=== PATIENT | female | born 1965 | race African-American/Black ===

== ENCOUNTER 2017-09-22 11:41 | Emergency (ER) | payer MEDICARE ==
[~2017-09-22] VITALS: Ht 157.5 cm; Wt 84.8 kg
[2017-09-22 11:45] VITALS: BP 156/93
[2017-09-22] MEDS ORDERED: DIAZEPAM5 MG ORAL (11:52)
[2017-09-22] MEDS ORDERED: AMOXICILLIN500 MG ORAL (11:52)
[2017-09-22] MEDS ORDERED: ATENOLOL25 MG ORAL (11:52)
[2017-09-22] MEDS ORDERED: LORazepam Inj 2mg/ml 1ml IV ONE (12:30)
[2017-09-22 12:39] VITALS: BP 147/78
[2017-09-22] MEDS ORDERED: LORazepam 1mg tab ORAL ONE (12:45)
[2017-09-22 13:01] LABS: BASOPHILS % (AUTO) 1.5 % (0.0-2.0); EOSINOPHILS % (AUTO) 0.5 % (0.0-3.0); HEMATOCRIT 48.2 % (37.0-47.0); HEMOGLOBIN 15.3 G/DL (12.0-16.0); LYMPHOCYTES % (AUTO) 33.7 % (20.0-45.0); MEAN CORPUSCULAR VOLUME 83 FL (80-99); MONOCYTES % (AUTO) 7.2 % (1.0-10.0); PLATELET COUNT 289 K/UL (150-450); RED BLOOD COUNT 5.83 M/UL (4.20-5.40); RED CELL DISTRIBUTION WIDTH 13.5 % (11.6-14.8); WHITE BLOOD COUNT 6.8 K/UL (4.8-10.8)
[2017-09-22 13:17] LABS: ANION GAP 9 mmol/L (5-15); BLOOD UREA NITROGEN 11 mg/dL (7-18); CALCIUM 9.2 MG/DL (8.5-10.1); CARBON DIOXIDE 29 MMOL/L (21-32); CHLORIDE 105 MMOL/L (98-107); CREATININE 0.7 MG/DL (0.55-1.30); POTASSIUM 3.3 MMOL/L (3.5-5.1); SODIUM 143 MMOL/L (136-145)
[2017-09-22 13:30] LABS: ALANINE AMINOTRANSFERASE 40 U/L (12-78); ALBUMIN 4.1 G/DL (3.4-5.0); ALBUMIN/GLOBULIN RATIO 1.1 (1.0-2.7); ALKALINE PHOSPHATASE 116 U/L (46-116); ASPARTATE AMINO TRANSFERASE 21 U/L (15-37); BILIRUBIN,TOTAL 0.3 MG/DL (0.2-1.0); CREATINE KINASE 173 U/L (26-308)
[2017-09-22 14:09] VITALS: BP 140/81
[2017-09-22] MEDS ORDERED: KCl 10% 20 mEq/15ml liquid ORAL STA (14:18)
--- NOTE | 2017-09-22 14:20 | Emergency Room Report ---
History of Present Illness General Chief Complaint: Dizziness Source: Patient Present Illness HPI Patient presents with multiple complaints. She feels dizzy. She was recently treated with amoxicillin for right otitis media. In addition to that she's been feeling nauseated. She feels pulsing her neck and palpitations. She suffers from anxiety and takes diazepam and also Xanax. She has not had any fevers. She denies loss of consciousness. There is no chest pain, rather she feels palpitations at times. She's going through menopause at this time. Her doctor has not discussed hormone replacement. The last few days she's also been urinating frequently. She has no known history of diabetes at this time. No headache, cough, nausea, vomiting. No change in bowels. She takes atenolol for HTN. She is not on any diuretic. She is worried about her thyroid with the pulsing in her neck. Also, with the dizziness, she is worried about something wrong in her brain. Allergies: Coded Allergies: No Known Allergies (Unverified , 09/22/17) Patient History Past Medical History: see triage record Social History: Reports: smoking - former Social History Narrative at home Last Menstrual Period: menopause Reviewed Nursing Documentation: PMH: Agreed, PSxH: Agreed Nursing Documentation-PMH Past Medical History: No History, Except For Hx Cardiac Problems: Yes - palpitation Hx Hypertension: Yes Hx Pacemaker: No Hx Asthma: No Hx COPD: No Hx Diabetes: No Hx Cancer: No Hx Gastrointestinal Problems: No Hx Dialysis: No History Of Psychiatric Problem: No Hx Neurological Problems: No Hx Cerebrovascular Accident: No Hx Seizures: No Review of Systems All Other Systems: negative except mentioned in HPI Physical Exam Vital Signs Date Time Temp Pulse Resp B/P (MAP) Pulse Ox O2 Delivery O2 Flow Rate FiO2 09/22/17 11:45 98.2 87 16 156/93 95 Room Air Sp02 EP Interpretation: reviewed, normal General Appearance: well appearing, no apparent distress, GCS 15 Head: normocephalic Eyes: bilateral eye normal inspection, bilateral eye PERRL, bilateral eye other - periorbital hyperpigmentation ENT: normal pharynx, moist mucus membranes, other - R canal with some thickening, TM normal Neck: full range of motion, supple, thyroid normal Respiratory: lungs clear, normal breath sounds Cardiovascular #1: regular rate, rhythm Cardiovascular #2: 2+ radial (R) Gastrointestinal: normal inspection, normal bowel sounds, non tender, no mass, non-distended, overweight Musculoskeletal: back normal, gait/station normal, normal range of motion Neurologic: alert, oriented x3, behavioral medical director III-XII nml as tested, motor strength/tone normal, DTRs symmetric, sensory intact, cerebellar normal, normal gait, speech normal Psychiatric: anxious Skin: normal inspection, warm/dry Medical Decision Making Diagnostic Impression: Primary Impression: Dizziness Additional Impressions: Suspected change of life symptoms Hypokalemia ER Course Patient with polyuria, dizziness, palpitations and strange feeling in her neck. Ddx: vertigo, hyperthyroidism, diabetes, arrhythmia, electrolyte abnormalities , anxiety, perimenopausal symptoms, labyrinthitis amongst others. Evaluation with EKG, cardiac monitoring, labs. Non-focal neurologic exam and imaging studies not indicated. She requests ativan before IV start. EKG no injury. Labs with normal WBC and slight elevated h/h. K is minimally low. TSH normal. Glucose 114. Improved with treatment. However, patient is requesting MRI of brain. I discussed that based on exam, not indicated at this time. Discussed lab findings and considerations for PMD to further evaluate. K given. Etiology of low K unclear. Given copies of labs and EKG. When discussing plan, she states Antivert has not helped her in the past. No medical emergency at this time. Patient stable for outpatient observation and treatment. Laboratory Tests Test 09/22/17 12:05 09/22/17 12:53 Urine Color Pale yellow Urine Appearance Clear Urine pH 7 (4.5-8.0) Urine Specific [place] 1.010 (1.005-1.035) Urine Protein Negative (NEGATIVE) Urine Glucose (UA) Negative (NEGATIVE) Urine Ketones Negative (NEGATIVE) Urine Occult Blood Negative (NEGATIVE) Urine Nitrite Negative (NEGATIVE) Urine Bilirubin Negative (NEGATIVE) Urine Urobilinogen Normal MG/DL (0.0-1.0) Urine Leukocyte Esterase Negative (NEGATIVE) Urine Opiates Screen Negative (NEGATIVE) Urine Barbiturates Screen Negative (NEGATIVE) Phencyclidine (PCP) Screen Negative (NEGATIVE) Urine Amphetamines Screen Negative (NEGATIVE) Urine Benzodiazepines Screen Positive (NEGATIVE) H Urine Cocaine Screen Negative (NEGATIVE) Urine Marijuana (THC) Screen Negative (NEGATIVE) White Blood Count 6.8 K/UL (4.8-10.8) Red Blood Count 5.83 M/UL (4.20-5.40) H Hemoglobin 15.3 G/DL (12.0-16.0) Hematocrit 48.2 % (37.0-47.0) H Mean Corpuscular Volume 83 FL (80-99) Mean Corpuscular Hemoglobin 26.3 PG (27.0-31.0) L Mean Corpuscular Hemoglobin Concent 31.8 G/DL (32.0-36.0) L Red Cell Distribution Width 13.5 % (11.6-14.8) Platelet Count 289 K/UL (150-450) Mean Platelet Volume 7.6 FL (6.5-10.1) Neutrophils (%) (Auto) 57.0 % (45.0-75.0) Lymphocytes (%) (Auto) 33.7 % (20.0-45.0) Monocytes (%) (Auto) 7.2 % (1.0-10.0) Eosinophils (%) (Auto) 0.5 % (0.0-3.0) Basophils (%) (Auto) 1.5 % (0.0-2.0) Erythrocyte Sedimentation Rate 8 MM/HR (0-30) Prothrombin Time 10.2 SEC (9.30-11.50) Prothrombin Time INR 1.0 (0.9-1.1) PTT 29 SEC (23-33) Sodium Level 143 MMOL/L (136-145) Potassium Level 3.3 MMOL/L (3.5-5.1) L Chloride Level 105 MMOL/L (98-107) Carbon Dioxide Level 29 MMOL/L (21-32) Anion Gap 9 mmol/L (5-15) Blood Urea Nitrogen 11 mg/dL (7-18) Creatinine 0.7 MG/DL (0.55-1.30) Estimate Glomerular Filtration Rate > 60 mL/min (>60) Glucose Level 114 MG/DL (74-106) H Calcium Level 9.2 MG/DL (8.5-10.1) Total Bilirubin 0.3 MG/DL (0.2-1.0) Aspartate Amino Transferase (AST) 21 U/L (15-37) Alanine Aminotransferase (ALT) 40 U/L (12-78) Alkaline Phosphatase 116 U/L (46-116) Total Creatine Kinase 173 U/L (26-308) Troponin I 0.000 ng/mL (0.000-0.056) Pro-B-Type Natriuretic Peptide 13 pg/mL (0-125) Total Protein 8.0 G/DL (6.4-8.2) Albumin 4.1 G/DL (3.4-5.0) Globulin 3.9 g/dL Albumin/Globulin Ratio 1.1 (1.0-2.7) Thyroid Stimulating Hormone (TSH) 1.682 uiU/mL (0.360-3.740) EKG Diagnostic Results Rate: normal Rhythm: NSR ST Segments: no acute changes Rhythm Strip Diag. Results EP Interpretation: yes Rhythm: NSR, no PVC's, no ectopy Chest X-Ray Diagnostic Results Chest X-Ray Diagnostic Results : Chest X-Ray Ordered: Yes # of Views/Limited/Complete: 1 View Indication: Other EP Interpretation: Yes Interpretation: no consolidation, no effusion, no pneumothorax, no acute cardiopulmonary disease, other - slightly globular cor Impression: No acute disease Electronically Signed by: Charles Cintron MD Last Vital Signs Date Time Temp Pulse Resp B/P (MAP) Pulse Ox O2 Delivery O2 Flow Rate FiO2 09/22/17 16:07 98.6 74 19 141/79 97 Room Air Status: improved Disposition: HOME, SELF-CARE Condition: Improved Scripts Hydroxyzine Pamoate* (VISTARIL*) 50 Mg Capsule 25 MG ORAL EVERY 6 HOURS Y for dizziness, #20 TAB 0 Refills Prov: Charles Cintron M.D. 09/22/17 Referrals: NOT CHOSEN HUGO/,REFERRING (PCP) Charles Cintron M.D. Sep 22, 2017 14:20
[2017-09-22 14:34] LABS: APPEARANCE,URINE CLEAR; BILIRUBIN, URINE NEGATIVE (NEGATIVE); COLOR,URINE PALE YELLOW; GLUCOSE, URINE (UA) NEGATIVE (NEGATIVE); KETONES,URINE NEGATIVE (NEGATIVE); LEUKOCYTE ESTERASE ,URINE NEGATIVE (NEGATIVE); NITRITE,URINE NEGATIVE (NEGATIVE); PH,URINE 7 (4.5-8.0); PROTEIN,URINE NEGATIVE (NEGATIVE); UROBILINOGEN,URINE NORMAL MG/DL (0.0-1.0)
[2017-09-22] MEDS ORDERED: VISTARIL50 MG ORAL (15:57)
[2017-09-22 16:07] VITALS: BP 141/79
--- NOTE | 2017-09-23 10:35 | Diagnostic Imaging Report ---
Indication: Chest pain Comparison: None. Findings: Single view of the chest shows cardiomegaly. Pulmonary vasculature is normal. Lungs are clear. Bones are unremarkable. Impression: Cardiomegaly. There is no acute pneumonitis or failure. Atelectasis and or scarring in the right midlung.
--- NOTE | 2017-09-30 15:56 | Cardiology Report ---
APPROVED REPORT EKG Measurement Heart [id number] 182P39 [id number] Normal sinus rhythm Possible Anterior infarct, age undetermined Abnormal ECG
--- NOTE | 2017-09-30 15:56 | Cardiology Report ---
APPROVED REPORT EKG Measurement Heart [id number] [id number] Normal sinus rhythm Possible Anterior infarct, age undetermined Abnormal ECG
--- NOTE | 2017-09-30 15:56 | Cardiology Report ---
APPROVED REPORT EKG Measurement Heart [id number] [place] 182P39 [id number] Normal sinus rhythm Possible Anterior infarct, age undetermined Abnormal ECG
== END 2017-09-22 16:05 | disposition home or self-care (01) ==
LOC: EMR 12:15
DX: R42 Dizziness and giddiness (principal); E87.6 Hypokalemia; I10 Essential (primary) hypertension; Z79.899 Other long term (current) drug therapy
CPT/HCPCS: 36415; 71010; 80053; 80307; 81003; 82550; 83880; 84443; 84484; 85025; 85610; 85651; 85730; 93005; 99283

== ENCOUNTER 2018-05-17 00:18 | Emergency (ER) | payer MEDICARE ==
[~2018-05-17] VITALS: Ht 157.5 cm; Wt 88.5 kg
[~2018-05-17 00:18] MED LIST: AMOXICILLIN500 MG ORAL; ATENOLOL25 MG ORAL; DIAZEPAM5 MG ORAL; VISTARIL50 MG ORAL
[2018-05-17 01:05] VITALS: BP 112/68
[2018-05-17] MEDS ORDERED: CLARITIN10 MG ORAL (02:51)
[2018-05-17] MEDS ORDERED: MECLIZINE HCL25 MG ORAL (02:51)
--- NOTE | 2018-05-17 02:52 | Emergency Room Report ---
History of Present Illness General Chief Complaint: Dizziness Source: Patient Present Illness HPI Is a 52-year-old female with a history high blood pressure and diabetes. She presents with chief complaint of dizziness. Onset for last couple days but she says her allergies been acting up pretty badly. She been using Flonase. She was on a chair and looked down and felt dizzy. Similar symptom in the last couple days. No nausea no vomiting. No symptoms right now. No syncope. No chest pain. No focal deficit. Allergies: Coded Allergies: No Known Allergies (Unverified , 05/17/18) Patient History Past Medical History: see triage record, old chart reviewed, DM, HTN Past Surgical History: other Pertinent Family History: none Social History: Denies: smoking Last Menstrual Period: n/a Now: No Immunizations: other Reviewed Nursing Documentation: PMH: Agreed; PSxH: Agreed Nursing Documentation-PMH Hx Cardiac Problems: Yes - palpitation Hx Hypertension: Yes Hx Pacemaker: No Hx Asthma: No Hx COPD: No Hx Diabetes: No Hx Cancer: No Hx Gastrointestinal Problems: No Hx Dialysis: No Hx Cerebrovascular Accident: No Hx Seizures: No Review of Systems Eye: Denies: eye pain, blurred vision ENT: Denies: ear pain, nose congestion, throat swelling Respiratory: Denies: cough, shortness of breath Cardiovascular: Denies: chest pain, palpitations Gastrointestinal: Denies: abdominal pain, diarrhea, nausea, vomiting Musculoskeletal: Denies: back pain, joint pain Skin: Denies: rash Neurological: Denies: headache, numbness Endocrine: Denies: increased thirst, increased urine Hematologic/Lymphatic: Denies: easy bruising All Other Systems: negative except mentioned in HPI Physical Exam Vital Signs Date Time Temp Pulse Resp B/P (MAP) Pulse Ox O2 Delivery O2 Flow Rate FiO2 05/17/18 00:27 98.3 95 16 140/86 96 Room Air 98.2 vitals normal Sp02 EP Interpretation: reviewed, normal General Appearance: well appearing, no apparent distress, alert Head: normocephalic, atraumatic Eyes: bilateral eye PERRL, bilateral eye EOMI ENT: hearing grossly normal, normal pharynx Neck: full range of motion, supple, no meningismus Respiratory: chest non-tender, lungs clear, normal breath sounds Cardiovascular #1: regular rate, rhythm, no murmur Gastrointestinal: normal bowel sounds, non tender, no mass, no organomegaly, no bruit, non-distended Musculoskeletal: back normal, gait/station normal, normal range of motion Psychiatric: mood/affect normal Skin: warm/dry Medical Decision Making Diagnostic Impression: Primary Impression: Dizziness ER Course Patient with dizziness. No evidence of TIA or CVA. No evidence of central vertigo. Better now. We'll discharge home. CT/MRI/US Diagnostic Results CT/MRI/US Diagnostic Results : Imaging Test Ordered: CT head Impression negative per radiologist Last Vital Signs Date Time Temp Pulse Resp B/P (MAP) Pulse Ox O2 Delivery O2 Flow Rate FiO2 05/17/18 00:27 98.3 95 16 140/86 96 Room Air 98.2 Status: improved Disposition: HOME, SELF-CARE Condition: Stable Scripts Meclizine Hcl* (MECLIZINE*) 25 Mg Tablet 25 MG ORAL THREE TIMES A DAY, #30 TAB Prov: RAGHAVENDRA TOVAR M.D. 05/17/18 Loratadine (CLARITIN) 10 Mg Tablet 10 MG ORAL DAILY, #30 TAB Prov: RAGHAVENDRA TOVAR M.D. 05/17/18 Referrals: NON PHYSICIAN (PCP) Patient Instructions: Dizziness Additional Instructions: Follow-up with your doctor in 7 days. Return if symptom worsen. RAGHAVENDRA TOVAR M.D. May 17, 2018 02:52
[2018-05-17 03:05] VITALS: BP 116/75
[2018-05-17 03:12] VITALS: BP 116/75
--- NOTE | 2018-05-17 10:17 | Diagnostic Imaging Report ---
Indication: Dizziness headache Technique: Contiguous 5 mm thick transaxial imaging of the head obtained in a Siem[employer] Sensation [address] scanner. Soft tissue and bone windows generated. Automatic Exposure Control was utilized. Total Dose length Product (DLP): 1400.[address] Dose Index Volume (CTDIvol): 70.38 mGy Comparison: none Findings: There is mild prominence of the ventricles, basal cisterns, and cerebral sulci consistent with atrophy. Mild, nonspecific, white matter hypoattenuation is noted throughout the brain consistent with chronic small vessel disease. There is no midline shift, edema, acute hemorrhage, mass effect, or abnormal extra-axial fluid collections. Bones and extra osseous soft tissues are unremarkable. Impression: No acute intracranial bleed, mass effect or edema. Mild atrophy of the brain. Nonspecific white matter hypoattenuation probably due to chronic small vessel disease. The CT scanner at [facility] is accredited by the [employer] and the scans are performed using dose optimization techniques as appropriate to a performed exam including Automatic Exposure control.
== END 2018-05-17 03:12 | disposition home or self-care (01) ==
LOC: EMR 00:48
DX: R42 Dizziness and giddiness (principal); I10 Essential (primary) hypertension; E11.9 Type 2 diabetes mellitus without complications
CPT/HCPCS: 70450; 99284